=== PATIENT | male | born 1985 | race Caucasian/White ===

== ENCOUNTER 2024-06-29 16:01 | Emergency (ER) | payer MEDICARE, MEDICAID, SELFPAY ==
[2024-06-29 16:10] VITALS: BP 156/98; PULSE 89; RESP 20; TEMP 36.5; O2SAT 96; BMI 28.1
--- NOTE | 2024-06-29 16:10 | PD.EDUPEX ---
Upper Extremity Injury RME/HPI General Chief Complaint: Extremity Injury, Upper Stated Complaint: LEFT SHOULDER/COLLAR BONE PAIN Time Seen by Provider: 06/29/24 16:05 Arrival date/time: 06/29/24 16:01 39-year-old male presents emergency department complains of left shoulder pain collarbone pain after lifting a heavy object 4 days ago. There are no other associated symptoms or aggravating factors no other modifying factors, patient denies taking medication before coming to ER today Limitations: no limitations Related Data Previous Rx's ?Medication ?Instructions ?Recorded cyclobenzaprine 10 mg tablet 10 mg PO TID PRN muscle spasm 10 06/29/24 days #30 tab-caps ibuprofen 800 mg tablet 800 mg PO TID PRN pain #30 tabs 06/29/24 Allergies Allergy/AdvReac Type Severity Reaction Status Date / Time DIRT Allergy Severe Difficulty Uncoded 04/09/24 09:30 Breathing DUST Allergy Severe Difficulty Uncoded 04/09/24 09:30 Breathing Review of Systems Review of Systems Systems Reviewed: All systems reviewed, normal except as documented Constitutional Constitutional: Reports system reviewed and no additional complaints, except as documented, Denies fever(s) and Denies headache(s) Eyes Eyes: Reports system reviewed and no additional complaints, except as documented and Denies blurry vision ENT Ears, Nose, Mouth, and Throat: Reports system reviewed and no additional complaints, except as documented, Denies headache(s), Denies nasal congestion and Denies nasal discharge Cardiovascular Cardiovascular: Reports system reviewed and no additional complaints, except as documented, Denies chest pain and Denies dyspnea Respiratory Respiratory: Reports system reviewed and no additional complaints, except as documented, Denies chest congestion, Denies cough and Denies dyspnea Gastrointestinal Gastrointestinal: Reports system reviewed and no additional complaints, except as documented and Denies abdominal pain Musculoskeletal Musculoskeletal: Reports system reviewed and no additional complaints, except as documented, Reports arthralgias (Left shoulder and collarbone pain), Denies numbness, Denies stiffness and Denies tingling Integumentary/Breasts Skin/Breast: Reports system reviewed and no additional complaints, except as documented and Denies rash Neurologic Neurologic: Reports system reviewed and no additional complaints, except as documented, Reports as per HPI, Denies headache(s), Denies numbness and Denies tingling Past Medical History Past Medical History CARDIAC: Negative Congestive Heart Failure RESPIRATORY: Positive Asthma; Negative Chronic Obstructive Pulmonary Disease (COPD) GASTROINTESTINAL: Positive Ulcer and Gastroesophageal Reflux Disease GENITOURINARY: Negative Renal Disease ENDOCRINE: Negative Diabetes Mellitus Type 1 or Diabetes Mellitus Type 2 PSYCHO/SOCIAL: Positive Schizophrenia and Anxiety Social History SMOKING STATUS: Never smoker SUBSTANCE USE: does not use ED Exam General Limitations: Present no limitations General appearance: Present alert and in no apparent distress Head Head exam: Present atraumatic Eye Eye exam: Present normal appearance, PERRL and EOMI ENT ENT exam: Present normal exam, normal oropharynx and mucous membranes moist Neck Neck exam: Present normal inspection, full ROM and trachea midline Chest Chest inspection: Present normal inspection and symmetric chest wall rise Respiratory Respiratory exam: Present normal lung sounds bilaterally Cardiovascular Cardiovascular exam: Present regular rate, normal rhythm and normal heart sounds Abdominal Exam Abdominal exam: Present soft and normal bowel sounds Extremities Exam Extremities exam: Present normal inspection and full ROM Back Exam Back exam: Present full ROM, tenderness and other (Left shoulder pain) Neurological Exam Neurological exam: Present alert, oriented X3 and CN II-XII intact Psychiatric Psychiatric exam: Present normal affect and normal mood Skin Skin exam: Present warm, dry, intact and normal color Course Quality Measures none Orders Category Date Time Status Ibuprofen Tab [Motrin Tab] Med 06/29/24 16:10 Discontinued 800 mg PO X1 ONE Vital Signs Vital signs: Vital Signs Temperature 97.7 F 06/29/24 16:10 Pulse Rate 89 06/29/24 16:10 Respiratory Rate 20 06/29/24 16:10 Blood Pressure 156/98 H 06/29/24 16:10 Pulse Oximetry (%) 96 06/29/24 16:10 Oxygen Delivery Method Room Air 06/29/24 16:10 O2 saturation 96% room air within normal limits Extremity Injury MDM Narrative MDM Narrative:: 39-year-old male presents emergency department complains of left shoulder pain collarbone pain after lifting a heavy object 4 days ago. There are no other associated symptoms or aggravating factors no other modifying factors, patient denies taking medication before coming to ER today On exam patient well-appearing patient does not appear ill or toxic patient is full range of motion of the left arm patient reports no chest pain or shortness of breath Patient is no bruising or swelling Symptoms consistent with muscle strain I explained the patient for symptoms persist or worsen he will have to see his PCP for further evaluation and possible MRI for rotator cuff injury Patient data External records reviewed:: [facility] previous records Clinical information provided by:: patient Social determinants that could affect healthcare access:: none Patient has the following chronic illnesses:: None How is presenting disease/condition affected by chronic disease/condition?: no chronic disease Evaluation data The following diagnostics were reviewed and interpreted by me:: other (specify) (N/A) Lab and/or radiology exams considered but not ordered:: Consider not ordered Interpretation Summary: N/A Medications / Prescriptions Medications or Prescriptions considered but not ordered:: Given Medication administrations:: Medication Administration History Discontinued Medications Ibuprofen (Ibuprofen Tab 400 Mg Tablet) 800 mg PO X1 ONE Stop: 06/29/24 16:11 Given Consultations Consultation(s) initiated? (list below): No Diagnosis Upper Extremity Injury Differential Diagnosis: sprain and strain of wrist, fracture of wrist, dislocation of shoulder and other (Shoulder sprain) Most likely diagnosis given after review of the tests above:: Shoulder sprain Admission Indicated Admission indicated?: not indicated Admission Request Was there a request for admission?: No Disposition Plan Disposition Plan: Discharge Discharge Attestation Discharge Attestation: The patient and all family members were given an opportunity to ask questions and understood the discharge instructions. Discharge instructions specifically effects, indications for sooner follow up or return to the emergency department, and the expected course of current diagnosis. Patient condition: Stable Discharge Plan Plan Patient Disposition: HOME (Self Care) Disposition Comment: Stable Prescriptions/Referrals Prescriptions/Med Rec: New cyclobenzaprine 10 mg tablet 10 mg PO TID PRN (Reason: muscle spasm) 10 Days Qty: 30 0RF ibuprofen 800 mg tablet 800 mg PO TID PRN (Reason: pain) Qty: 30 0RF Problem List Clinical Impression: Left shoulder strain Patient/Caregiver Discharge Instructions Education Materials: Treating?Strains and Sprains Additional Instructions: Please follow up with your primary care doctor in the next 24-48hrs for any worsening symptoms return here immediately Print Language: Kosovan Stand Alone Forms: [employer] Award Info., Patient Portal Info Letter PA/MAINTENANCE AND ENGINEERING MANAGER Supervising Physician PA/MAINTENANCE AND ENGINEERING MANAGER Supervising Physician: Dr. Simpson
[2024-06-29] MEDS: IBUPROFEN TAB 400 MG TABLET 800 MG PO (16:16)
== END 2024-06-29 16:22 | disposition home or self-care (01) ==
LOC: SERX 16:47
PROVIDERS: Emergency Provider Emergency Medicine; PCP Physician Assistant
DX: S46.912A Strain of unspecified muscle, fascia and tendon at shoulder and upper arm level, left arm, initial encounter (principal); X58.XXXA Exposure to other specified factors, initial encounter
CPT/HCPCS: 99282; A9270

== ENCOUNTER 2025-05-25 17:47 | Emergency (ER) | payer MEDICARE, MEDICAID, SELFPAY ==
[2025-05-25 17:48] VITALS: BMI 33.3
[2025-05-25 17:59] VITALS: BP 161/94; PULSE 80; RESP 18; TEMP 36.7; O2SAT 99
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
[2025-05-25] MEDS: IBUPROFEN TAB 400 MG TABLET 800 MG PO (18:47)
== END 2025-05-25 20:38 | disposition home or self-care (01) ==
PROVIDERS: Emergency Provider Emergency Medicine; PCP Physician Assistant
DX: Z04.1 Encounter for examination and observation following transport accident (principal); V43.52XA Car driver injured in collision with other type car in traffic accident, initial encounter
CPT/HCPCS: 72100; 99282; A9270